=== PATIENT | female | born 1970 | race Caucasian/White ===

== ENCOUNTER 2021-01-05 11:47 | Emergency (ER) | payer OTHER ==
[~2021-01-05] VITALS: Ht 172.7 cm; Wt 74.8 kg
[2021-01-05] MEDS ORDERED: MELO-105 PO (12:15)
[2021-01-05] MEDS ORDERED: HYDR4TAB4 PO (12:15)
[2021-01-05] MEDS ORDERED: TAMS-3 PO (12:15)
[2021-01-05] MEDS ORDERED: IV NORMAL SALINE 1000 ML BAG IV ONE (12:15)
[2021-01-05] MEDS ORDERED: VITAMIN D PO (12:15)
--- NOTE | 2021-01-05 12:15 | NUR ---
at bedside to examine pt,.
[2021-01-05 12:31] LABS: BASOPHILS % (AUTO) 1.1 % (0.0-2.0); EOSINOPHILS # (AUTO) 0.1 K/uL (0.0-0.7); EOSINOPHILS % (AUTO) 2.7 % (0.0-7.0); HEMATOCRIT 44.3 % (31.2-41.9); HEMOGLOBIN 15.2 g/dL (10.9-14.3); LYMPHOCYTES # (AUTO) 1.6 K/uL (20.0-40.0); LYMPHOCYTES % (AUTO) 36.8 % (20.5-51.5); MEAN CORPUSCULAR HEMOGLOBIN 30.7 uug (24.7-32.8); MEAN CORPUSCULAR HGB CONC 34 g/dL (32.3-35.6); MEAN CORPUSCULAR VOLUME 89.3 fL (75.5-95.3); MONOCYTES # (AUTO) 0.5 K/uL (2.0-10.0); MONOCYTES % (AUTO) 11.1 % (0.0-11.0); NEUTROPHILS # (AUTO) 2.1 K/uL (1.8-8.9); NEUTROPHILS % (AUTO) 48.3 % (38.5-71.5); PLATELET COUNT (AUTO) 211 K/uL (179-408); RED BLOOD CELL COUNT(AUTO) 4.96 MIL/uL (3.63-4.92); WHITE BLOOD COUNT (AUTO) 4.3 K/uL (3.8-11.8)
[2021-01-05 12:35] LABS: CREATININE 0.9 mg/dL (0.6-1.3); POTASSIUM 3.4 mmol/L (3.5-5.1)
[2021-01-05 12:40] LABS: BILIRUBIN,DIRECT 0.1 mg/dL (0.0-0.2); BILIRUBIN,TOTAL 0.4 mg/dL (0.2-1.0); TOTAL PROTEIN, SERUM 7.8 g/dL (6.4-8.2)
[2021-01-05 13:04] VITALS: BP 110/72
--- NOTE | 2021-01-05 13:06 | NUR ---
DCD instructions provided to pt. who verbalized understanding. Pt. left room with AAOx4. vitals stable no c/of pain or any visible distress.
== END 2021-01-05 13:16 | disposition home or self-care (01) ==
LOC: ER 11:47
DX: R00.2 Palpitations (principal); M25.50 Pain in unspecified joint; R53.83 Other fatigue; Z79.899 Other long term (current) drug therapy
CPT/HCPCS: 36415; 70030-TC; 71045; 83690; 85025; 85730; 93005; A4663; J7030

== ENCOUNTER 2021-07-12 12:21 | Inpatient (IN) | payer OTHER ==
[~2021-07-12] VITALS: Ht 172.7 cm; Wt 74.8 kg
[~2021-07-12 12:21] MED LIST: HYDR4TAB4 PO; MELO-105 PO; TAMS-3 PO; VITAMIN D PO
--- NOTE | 2021-07-12 12:45 | NUR ---
Dr Arzate at bedside for MSE.
[2021-07-12] MEDS ORDERED: IV NORMAL SALINE 1000 ML BAG IV ONE (13:00)
[2021-07-12 13:08] LABS: HEMATOCRIT 44.3 % (31.2-41.9); MEAN CORPUSCULAR HEMOGLOBIN 30.7 uug (24.7-32.8); MEAN CORPUSCULAR VOLUME 89.3 fL (75.5-95.3); PLATELET COUNT (AUTO) 221 K/uL (179-408)
[2021-07-12] MEDS ORDERED: KETOROLAC TROMETHAMINE 15 MG INJ ONE ×3 (13:12→18:01)
[2021-07-12 13:18] LABS: *BILIRUBIN,URIN NEGATIVE (NEGATIVE); *BLOOD, URINE 2+ (NEGATIVE); *COLOR,URINE YELLOW (YELLOW); *KETONES,URINE NEGATIVE (NEGATIVE); LEUKOCYTE ESTERASE ,URINE NEGATIVE (NEGATIVE); NITRITE, URINE NEGATIVE (NEGATIVE); UGLUCOSE NEGATIVE (NEGATIVE)
[2021-07-12 13:19] LABS: BILIRUBIN,DIRECT 0.1 mg/dL (0.0-0.2); BILIRUBIN,TOTAL 0.7 mg/dL (0.2-1.0); CREATININE 0.9 mg/dL (0.6-1.3); POTASSIUM 3.2 mmol/L (3.5-5.1); TOTAL PROTEIN, SERUM 7.7 g/dL (6.4-8.2)
[2021-07-12 13:21] LABS: *URINE HCG, QUAL NEGATIVE (NEGATIVE)
[2021-07-12] MEDS ORDERED: KETOROLAC TROMETHAMINE 15 MG INJ IVP ONE ×2 (13:45)
[2021-07-12 14:40] LABS: *CLARITY,URINE CLOUDY (CLEAR); BACTERIA,URINE FEW /HPF (NONE SEEN); SQUAMOUS EPITHELIAL CELL,UR FEW /HPF (NONE SEEN); URINE AMORPHOUS URATE MANY /HPF
[2021-07-12] MEDS ORDERED: HYDROMORPHONE 1 MG/1 ML DISP.SYRIN IV ONE ×3 (14:45→19:45)
[2021-07-12] MEDS ORDERED: HYDROMORPHONE 1 MG/1 ML DISP.SYRIN ONE ×3 (14:52→19:44)
--- NOTE | 2021-07-12 15:11 | NUR ---
Patient authorized to be admitted to the hospital. Called 3rd floor to give heads up about Medsurg bed/female. S/w Jeana, no charge nurse at this time, but floor is facilitating DC's. Will call us back.
--- NOTE | 2021-07-12 15:13 | NUR ---
Paged [employer] for panel call.
--- NOTE | 2021-07-12 15:36 | NUR ---
MD notified that patient's pain medications last about 15-30 minutes, and the the pain goes back to 10/10. Patient is resting in bed, no signs of distress, but verbalizes severe pain.
--- NOTE | 2021-07-12 15:53 | NUR ---
Dr Nelson accepted the patient for admission. Dr Bobo paged for consult on nephrology.
--- NOTE | 2021-07-12 15:56 | NUR ---
3rd floor notified that patient has been accepted for admission already. Per Jeana, accredited legal secretary, floor is still pending nurses for admission.
--- NOTE | 2021-07-12 16:30 | NUR ---
No nurses available for admission at this time. Pt to be held in ED until next shift. Pt pain being managed at this time, otherwise with no signs of distress.
--- NOTE | 2021-07-12 16:50 | NUR ---
Dr Bobo called and speak with Dr. Arzate. Dr Arzate @ bedside and explained to patient that [facility] MD is planning to do a cystoscopy with double J stent placement. RN witnessed informed consent, to be reviewed in OR. Patient's last meal was 07/11/211999 as confirmed by patient. Pre-op checklist done on paper/as per ER protocols. Pt changed into a hospital gown, all belongings placed in a bag and accounted for. Warm blankets provided and kept patient comfortable.
--- NOTE | 2021-07-12 18:50 | NUR ---
Patient pending OR slate picker at 1999, patient aware. Patient's pain is managed at this time, continues to have no signs of distress. Will continue to monitor, and endorse to incoming shift.
[2021-07-12] MEDS ORDERED: ONDANSETRON 4 MG/2 ML VIAL ONE (19:44)
[2021-07-12] MEDS ORDERED: ACETAMINOPHEN 325 MG TABLET PO PRN (19:45)
[2021-07-12] MEDS ORDERED: ONDANSETRON 4 MG/2 ML VIAL IV PRN (19:45)
[2021-07-12] MEDS ORDERED: ONDANSETRON 4 MG/2 ML VIAL IV ONE (19:45)
[2021-07-12] MEDS ORDERED: POTASSIUM CHLORIDE 20 MEQ in IV 1/2NS 1000 ML 1,000 ML IV PRN (19:45)
[2021-07-12] MEDS ORDERED: MIDAZOLAM HCL 2 MG/2 ML VIAL ONE (19:51)
[2021-07-12] MEDS ORDERED: FENTANYL CITRATE 100 MCG/2 ML AMPUL ONE ×2 (19:52→21:54)
--- NOTE | 2021-07-12 19:56 | NUR ---
OR team here to picking supervisor patient. Consent/paperwork given to OR staff. Patient's vital signs are stable. pain medication given as ordered. patient appears comfortable.
[2021-07-12] MEDS ORDERED: MEPERIDINE 25 MG/1 ML DISP.SYRIN ONE (21:10)
[2021-07-12 22:22] VITALS: BP 125/77
[2021-07-12] MEDS: TAMSULOSIN HCL 0.4 MG CAP.SR.24H PO SCH (23:21)
[2021-07-12] MEDS: HYDROMORPHONE 1 MG/1 ML DISP.SYRIN IV PRN (23:43)
--- NOTE | 2021-07-13 01:34 | NUR ---
Admited pt to [facility] from OR accompanied by 2 OR nurses. She is alert and oriented x4, BRP, and able to make needs known. On room air with no respiratory distress noted. She is s/p cystoscopy with stent. IV line on LAC remains patent and intact, started on 1/2 NS 1L + KCL 20 meq running at 80 ml/hr. Skin is intact. Admission procedures observed, belongings list filled up, full body assessment done. C/o left flank pain 8/10, medicated with Dilaudid IV PRN and noted to be effective. All needs attended. Call light placed within reach. Will continue to monitor.
[2021-07-13] MEDS: HYDROMORPHONE 1 MG/1 ML DISP.SYRIN IV PRN ×4 (02:46→12:05)
[2021-07-13 04:00] VITALS: BP 120/70
--- NOTE | 2021-07-13 06:10 | NUR ---
Pt slept intermittently throughout the night. BRP, able to void without difficulty. Dilaudid IV PRN given Q3H, last given at 0555H. All needs attended. Call light placed within reach. Frequent visual checks done. Will endorse to next shift for continuity of care.
[2021-07-13 06:45] LABS: HEMATOCRIT 38.2 % (31.2-41.9); MEAN CORPUSCULAR HEMOGLOBIN 30.8 uug (24.7-32.8); MEAN CORPUSCULAR VOLUME 90.8 fL (75.5-95.3); PLATELET COUNT (AUTO) 167 K/uL (179-408)
[2021-07-13] MEDS ORDERED: PANTOPRAZOLE SODIUM 40 MG TABLET.DR PO SCH (07:00)
[2021-07-13 07:14] LABS: CREATININE 0.9 mg/dL (0.6-1.3); MAGNESIUM 1.7 mg/dL (1.8-2.4); POTASSIUM 3.9 mmol/L (3.5-5.1)
[2021-07-13] MEDS: TAMSULOSIN HCL 0.4 MG CAP.SR.24H PO SCH (08:02)
[2021-07-13] MEDS ORDERED: IV NS 1000 ML 1,000 ML IV PRN (08:15)
[2021-07-13 11:51] VITALS: BP 105/52
[2021-07-13] MEDS ORDERED: CEPH250C PO (12:11)
--- NOTE | 2021-07-13 16:00 | NUR ---
Came to nursing station being disruptive, security called. Patient self removed IV. Collected vape prior to leaving. D/C paperwork signed, but left behind. Agreed to discharge at 530 and would arrange private transportation. Belongings gathered and sent [id number] with patient
[2021-07-13 16:04] VITALS: BP 105/48
== END 2021-07-13 16:00 | disposition home or self-care (01) | DRG 661 ==
LOC: ER 12:21 → MEDSURG3 19:56
PROVIDERS: ADMIT Internal Medicine; ATTEND Internal Medicine
PROC: 0T778DZ Dilation of Left Ureter with Intraluminal Device, Via Natural or Artificial Opening Endoscopic (ICD-10-PCS; principal; 2021-07-12)
DX: N13.2 Hydronephrosis with renal and ureteral calculous obstruction (principal); E87.6 Hypokalemia; Z87.442 Personal history of urinary calculi; Z79.899 Other long term (current) drug therapy; Z90.710 Acquired absence of both cervix and uterus; G89.29 Other chronic pain; M54.50 Low back pain, unspecified; Z20.822 Contact with and (suspected) exposure to COVID-19; K59.00 Constipation, unspecified
CPT/HCPCS: 36415; 74018; 83690; 83735; 84100; 84703; 85025; 87086; A4217; A4663; C1713; C1758; G0378; J1170; J1885; J2175; J2250; J2405; J3010; J3480; J3490; J7030